=== PATIENT | male | born 1950 | race Caucasian/White ===

== ENCOUNTER 2017-03-09 07:10 | Day surgery (SDC) | payer MEDICARE, OTHER ==
[~2017-03-09] VITALS: Ht 175.3 cm; Wt 65.5 kg
[~2017-03-09 07:10] MED LIST: IRON SUPPLEMENT PO; LEVITRA PO; LEVSOD50; MULTIVITAMIN PO; NITR.4SL SL
[2017-03-09] MEDS ORDERED: SILD25T (07:21)
[2017-03-09] MEDS ORDERED: Carac30 GM (07:21)
== END 2017-03-09 09:12 | disposition home or self-care (01) ==
LOC: ORSCSDS 07:10
PROVIDERS: Internal Medicine Gastroenterology
PROC: 0DBH8ZX Excision of Cecum, Via Natural or Artificial Opening Endoscopic, Diagnostic (ICD-10-PCS; principal; 2017-03-09 08:15)
DX: Z12.11 Encounter for screening for malignant neoplasm of colon (principal); Z86.010 Personal history of colon polyps; Z80.0 Family history of malignant neoplasm of digestive organs; K57.30 Diverticulosis of large intestine without perforation or abscess without bleeding; K21.9 Gastro-esophageal reflux disease without esophagitis; Z79.899 Other long term (current) drug therapy
CPT/HCPCS: 88305; J0330; J1980; J2405; J7120

== ENCOUNTER 2023-01-05 14:01 | Day surgery (SDC) | payer MEDICARE, OTHER ==
[~2023-01-05] VITALS: Ht 175.3 cm; Wt 60.0 kg
[~2023-01-05 14:01] MED LIST changes: +Carac30 GM; +SILD25T
[2023-01-05 15:46] VITALS: BP 110/77
--- NOTE | 2023-01-05 15:47 | NUR ---
01/05/23 1547 Grace Rojas IV DC'D CATH INTACT. PT TOLERATED WELL. COBAN/GAUZE IN PLACE
== END 2023-01-05 15:47 | disposition home or self-care (01) ==
LOC: ORSCSDS 14:01
PROVIDERS: Internal Medicine Gastroenterology
PROC: 0DJD8ZZ Inspection of Lower Intestinal Tract, Via Natural or Artificial Opening Endoscopic (ICD-10-PCS; principal; 2023-01-05 15:15)
DX: Z12.11 Encounter for screening for malignant neoplasm of colon (principal); Z86.010 Personal history of colon polyps; Z80.0 Family history of malignant neoplasm of digestive organs; K57.30 Diverticulosis of large intestine without perforation or abscess without bleeding; Z79.899 Other long term (current) drug therapy
CPT/HCPCS: J0461; J1980; J2001; J2405; J2704; J7120; Q9968

== ENCOUNTER 2023-09-15 10:32 | Day surgery (SDC) | payer MEDICARE, OTHER ==
[~2023-09-15 10:32] MED LIST changes: +Balanced Salt Epinephrine Irrigation Solution 500 mL IR SCH; +Lidocaine HCl/Pf 1% 5 ML VIAL XX SCH; +Moxifloxacin HCL 0.5 MG/0.1 ML 0.4MLSYR RIGHTEYE SCH; +NS 500 ML IV ONE; +PHENYLEPHRINE\\TROPICAMIDE\\TETRACAINE OPHTHALMIC DILATING SOLN RIGHTEYE PRN; +Povidone-Iodine 450 DROP/30 ML Solution RIGHTEYE SCH; +Triamcinolone Inj Susp 40 MG / ML 1ML Vial INJ SCH; +Triamcinolone Inj Susp 40 MG / ML 1ML Vial ONE
--- NOTE | 2023-09-15 10:39 | NUR ---
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 DR. YEUNG AND RUPINDER BENNETT, [place] CONSULTED AND PATIENT WILL BE DEFERRED FOR TODAY AND ASKED TO RESCHEDULE. PT ADVISED OF THIS PRIOR TO BRINGING PATIENT BACK TO PRE OP.
== END 2023-09-15 10:40 | disposition home or self-care (01) ==
LOC: ORSCSDS 10:32
DX: H25.11 Age-related nuclear cataract, right eye (principal); Z53.9 Procedure and treatment not carried out, unspecified reason
CPT/HCPCS: J3301; J7040

== ENCOUNTER 2023-10-27 07:32 | Day surgery (SDC) | payer MEDICARE, OTHER ==
[~2023-10-27] VITALS: Ht 175.3 cm; Wt 63.6 kg
[~2023-10-27 07:32] MED LIST changes: +ATOR10; +Lidocaine HCl/Pf 1% 5 ML VIAL ONE; +Moxifloxacin HCL 0.5 MG/0.1 ML 0.4MLSYR LEFTEYE SCH; -Moxifloxacin HCL 0.5 MG/0.1 ML 0.4MLSYR RIGHTEYE SCH; +NIFEDIPINE 30 MG; +PHENYLEPHRINE\\TROPICAMIDE\\TETRACAINE OPHTHALMIC DILATING SOLN LEFTEYE PRN; -PHENYLEPHRINE\\TROPICAMIDE\\TETRACAINE OPHTHALMIC DILATING SOLN RIGHTEYE PRN; +PLAVIX75 MG; +Povidone-Iodine 450 DROP/30 ML Solution LEFTEYE SCH; -Povidone-Iodine 450 DROP/30 ML Solution RIGHTEYE SCH
[2023-10-27] MEDS ORDERED: ALBU90OI INH (07:46)
[2023-10-27] MEDS ORDERED: NITR.4SL SL (07:47)
[2023-10-27] MEDS ORDERED: ASPI81CH PO (07:47)
[2023-10-27] MEDS ORDERED: NS 500 ML IV ONE (07:51)
--- NOTE | 2023-10-27 07:52 | NUR ---
10/27/23 0752 Gee Bianchi CALL LIGHT WITHIN REACH. TETRACAINE IN 0746 LEFT EYE AND PLEDGETT IN AT 0747
[2023-10-27] MEDS ORDERED: Midazolam HCl 1MG / ML 2ML Vial ONE (08:25)
[2023-10-27] MEDS ORDERED: FentaNYL Citrate 50 MCG/ML 2 ML Injection ONE (08:25)
[2023-10-27 09:17] VITALS: BP 117/76
== END 2023-10-27 09:10 | disposition home or self-care (01) ==
LOC: ORSCSDS 07:32
PROVIDERS: Ophthalmology
PROC: 08RK3JZ Replacement of Left Lens with Synthetic Substitute, Percutaneous Approach (ICD-10-PCS; principal; 2023-10-27 08:30)
DX: H25.812 Combined forms of age-related cataract, left eye (principal); H52.202 Unspecified astigmatism, left eye; Z96.1 Presence of intraocular lens; E78.5 Hyperlipidemia, unspecified; J45.909 Unspecified asthma, uncomplicated; K21.9 Gastro-esophageal reflux disease without esophagitis; E07.9 Disorder of thyroid, unspecified; Z79.82 Long term (current) use of aspirin; Z79.899 Other long term (current) drug therapy
CPT/HCPCS: J2001; J2250; J3010; J3301; J7040; V2632